=== PATIENT | female | born 1970 | race Hispanic/Latino ===

== ENCOUNTER 2020-02-24 15:38 | Emergency (ER) | payer OTHER ==
[~2020-02-24] VITALS: Ht 157.5 cm; Wt 78.2 kg
[~2020-02-24 15:38] MED LIST: ESTRADIOL1 MG PO; SERTRALINE HCL25 MG; SYNTHROID125 MCG PO
[2020-02-24] MEDS ORDERED: SODIUM CHLORIDE 0.9% 1000ML 1,000 ML IV STA (16:11)
[2020-02-24] MEDS ORDERED: CEFTRIAXONE SOD 2 GM/NS 100 ML 100 ML IV ONE (16:15)
[2020-02-24] MEDS ORDERED: ONDANSETRON HCL INJ 2MG/ML 2ML 2 MG/ML VIAL IV ONE (16:15)
[2020-02-24] MEDS ORDERED: LORAZEPAM INJ 2 MG/ML VIAL IV ONE (16:15)
[2020-02-24] MEDS ORDERED: FAMOTIDINE 20 MG/2 ML VIAL IV ONE ×2 (16:15→16:37)
--- NOTE | 2020-02-24 16:21 | Emergency Department Note ---
History of Present Illnes History of Present Illness Chief Complaint: General Medicine Complaints History of Present Illness This is a 49 year old female reports that she was seen at [facility] last night and they did a CT scan, d/c home diagnosed with pna, and was having an anxiety attack and today her right hand won't stop shaking and the right side of her jaw is painful and not working. PMH: seizure tonic clonic, supposed to be on Keppra but not taking any at this time anxiety disorder. . Historian: Patient Arrival Mode: Car Mercerizer Required: No Onset (how long ago): day(s) Radiation: Reports non-radiation Severity: moderate Duration (how long): day(s) Timing of current episode: intermittent Progression: waxing and waning Relieving factors: none Exacerbating factors: none Treatments prior to arrival: none Previous service: medications given (levoquin for pna) Past Medical/Family History Physician Review I have reviewed the patient's past medical and family history. Any updates have been documented here. Past Medical History Recent Fever: Yes Clinical Suspicion of Infectio: No New/Unexplained Change in Ment: No Past Medical History: Seizure Disorder Other Medical History: ANXIETY Past Surgical History: None Social History Smoking Cessation: Never Smoker Counseling Performed: No Alcohol Use: None Any Illegal Drug Use: No TB Exposure/Symptoms: No Physically hurt or threatened: No Family History Family history of heart diseas: No Other Last Tetanus: ood Any Pre-Existing Lines (PICC,: No Is patient up to date on immun: Yes Last Flu: UTD Last Pneumovax: none Review of Systems Review of Systems Constitutional: Reports as per HPI, Reports chills, Reports fever, Reports malaise EENTM: Reports no symptoms Cardiovascular: Reports no symptoms Respiratory: Reports no symptoms Gastrointestinal: Reports no symptoms Genitourinary: Reports no symptoms Musculoskeletal: Reports no symptoms Integumentary: Reports no symptoms Neurological: Reports seizure, Reports tingling, Reports tremors, Reports other (right jaw) Psychological: Reports anxiety Endocrine: Reports no symptoms Hematological/Lymphatic: Reports no symptoms Physical Exam Related Data Allergies: Coded Allergies: No Known Allergies (Unverified , 03/03/11) Triage Vital Signs Vital Signs Date Time Temp Pulse Resp B/P (MAP) Pulse Ox O2 Delivery O2 Flow Rate FiO2 02/24/20 15:50 100.1 108 18 136/70 93 Vital signs reviewed: Yes Physical Exam CONSTITUTIONAL Constitutional: Present well-developed, Present well-nourished, Present distressed HENT HENT: Present normocephalic, Present atraumatic, Present oropharynx clear /moist, Present nose normal, Present other (airway intact) HENT L/R: Present left ext ear normal, Present right ext ear normal EYES Eyes: Reports PERRL, Reports conjunctivae normal NECK Neck: Present ROM normal PULMONARY Pulmonary: Present effort normal, Present rales CARDIOVASCULAR Cardiovascular: Present regular rhythm, Present heart sounds normal, Present capillary refill normal, Present normal rate GASTROINTESTINAL Abdominal: Present soft, Present nontender, Present bowel sounds normal GENITOURINARY Genitourinary: Present exam deferred SKIN Skin: Present warm, Present dry MUSCULOSKELETAL Musculoskeletal: Present ROM normal NEUROLOGICAL Neurological: Present alert, Present oriented x 3, Present no gross motor or sensory deficits, Present other (tremor seen right UE, twitching face and arm muscle) PSYCHOLOGICAL Psychological: Present mood/affect normal, Present judgement normal Results Laboratory Lab results reviewed: Yes (cbc, cmp ok) Imaging Imaging results reviewed: Yes Impressions pneumonia right lower Diagnostics Tests Diagnostic test(s) reviewed: Yes Assessment & Plan Medical Decision Making MDM tonic clonic seisure not on med, complicated by pna febrile illness Reassessment Reassessment time: 18:15 Reassessment seizure resolved after Ativan, rec pt to be admitted for further care but she wants to go home and f/u Assessment & Plan Final Impression: (1) Pneumonia (2) Tonic clonic seizures (3) Seizure Depart Disposition: HOME, SELF-CARE Last Vital Signs Date Time Temp Pulse Resp B/P (MAP) Pulse Ox O2 Delivery O2 Flow Rate FiO2 02/24/20 15:50 100.1 108 18 136/70 93 Home Meds Active Scripts Acetaminophen (ACETAMINOPHEN) 650 Mg Supp, 650 MG RC Q6H, #60 SUPP Prov:ERMA COOK MD 02/24/20 Levetiracetam (KEPPRA) 750 Mg Tablet, 1 TAB PO DAILY for 90 Days Prov:ERMA COOK MD 02/24/20 Medications in the ED Ondansetron HCl 4 mg ONCE ONCE IV ; Start 02/24/20 at 16:15; Stop 02/24/20 at 16:16; Status UNV Famotidine 20 mg ONCE ONCE IV ; Start 02/24/20 at 16:15; Stop 02/24/20 at 16:16; Status UNV Sodium Chloride 1,000 ml @ 0 mls/hr Q0M STAT IV ; Start 02/24/20 at 16:11; Stop 02/24/20 at 16:13; Status DC Lorazepam 2 mg ONCE ONCE IV ; Start 02/24/20 at 16:15; Stop 02/24/20 at 16:16; Status UNV Physician Attestation Provider Attestation pt continues Levoquin at home, She was tested negative for COVID 19 last week. ERMA COOK MD Feb 24, 2020 16:21
[2020-02-24] MEDS ORDERED: LORAZEPAM INJ 2 MG/ML VIAL ONE (16:37)
[2020-02-24] MEDS ORDERED: CEFTRIAXONE SOD 1 GM/NS 50 ML 50 ML IV ONE (16:37)
[2020-02-24] MEDS ORDERED: SODIUM CHLORIDE 0.9% 1000ML 1,000 ML ONE (16:37)
[2020-02-24] MEDS ORDERED: ONDANSETRON HCL INJ 2MG/ML 2ML 2 MG/ML VIAL ONE (16:38)
[2020-02-24] MEDS ORDERED: CEFTRIAXONE SOD 1 GM VIAL ONE (17:03)
[2020-02-24] MEDS ORDERED: LEVETIRACETAM 500MG/5ML VIAL 500 MG in SODIUM CHLORIDE 0.9% 100 ML 100 ML IV SCH ×4 (17:30)
[2020-02-24] MEDS ORDERED: ACETAMINOPHEN650 MG RC (17:30)
[2020-02-24] MEDS ORDERED: KEPPRA750 MG PO (17:30)
[2020-02-24] MEDS ORDERED: LEVETIRACETAM 500MG/5ML VIAL 500 MG in SODIUM CHLORIDE 0.9% 100 ML 100 ML IV ONE ×4 (17:45)
[2020-02-24] MEDS ORDERED: LEVETIRACETAM 500MG/5ML VIAL 1,000 MG in SODIUM CHLORIDE 0.9% 100 ML IV ONE (18:00)
[2020-02-24 18:44] VITALS: BP 112/61
--- NOTE | 2020-02-24 21:59 | Diagnostic Imaging Report ---
Examination: Single AP view of the chest. COMPARISON: None. INDICATION: Anxiety attack, fever for 2 days IMPRESSION: 1. Lines and Tubes: None 2. Lungs are well-inflated. Hazy airspace opacity in the right mid and lower lung as well as patchy left retrocardiac airspace opacity. Findings may represent pneumonia, in the appropriate clinical setting. 3. Cardiomediastinal silhouette is normal. Pulmonary vasculature is normal. 4. No acute bony abnormalities. Signed by: Dr. Audi Eldridge M.D. on 02/24/2020 9:56 PM
== END 2020-02-24 18:23 | disposition home or self-care (01) ==
LOC: FSED 15:38
DX: J18.9 Pneumonia, unspecified organism (principal); G40.409 Other generalized epilepsy and epileptic syndromes, not intractable, without status epilepticus; F41.9 Anxiety disorder, unspecified
CPT/HCPCS: 71045; 80053; 81003; 85025; 96374; 96375; 99284; J0696 ×2; J1953; J2060; J2405; J7030; J7050

== ENCOUNTER 2021-06-25 18:23 | Emergency (ER) | payer OTHER ==
[~2021-06-25] VITALS: Ht 157.5 cm; Wt 76.2 kg
[~2021-06-25 18:23] MED LIST changes: +ACETAMINOPHEN650 MG RC; +KEPPRA750 MG PO
[2021-06-25 20:45] VITALS: BP 141/65
== END 2021-06-25 20:45 | disposition home or self-care (01) ==
LOC: FSED 19:30
DX: O20.9 Hemorrhage in early pregnancy, unspecified (principal); Z3A.01 Less than 8 weeks gestation of pregnancy
CPT/HCPCS: 81003; 81025; 99282

== ENCOUNTER 2023-11-22 15:41 | Emergency (ER) | payer OTHER ==
[2023-11-22] MEDS ORDERED: ERYTHROMYCIN (OPTH) 3.5 GM OINT OP ONE (16:03)
== END 2023-11-22 16:04 | disposition home or self-care (01) ==
LOC: FSED 15:46
DX: S05.02XA Injury of conjunctiva and corneal abrasion without foreign body, left eye, initial encounter (principal); H57.12 Ocular pain, left eye
CPT/HCPCS: 99284